=== PATIENT | male | born 1980 | race Two or more races ===

== ENCOUNTER 2016-09-19 08:04 | Emergency (ER) | payer OTHER ==
[2016-09-19 08:14] VITALS: BP 130/77; PULSE 64; TEMP 98.1; BMI 28.3
[2016-09-19] MEDS ORDERED: NAPROXEN 500 MG TABLET (FP) PO ONE (08:53)
[2016-09-19] MEDS ORDERED: NAPROXEN 500 MG TABLET (FP) ONE (08:56)
--- NOTE | 2016-09-19 08:59 | PDOC ---
History of Present Illness - General Chief Complaint: Pain Stated Complaint: INJURY Time Seen by Provider: 09/19/16 08:31 History Source: Patient Exam Limitations: No Limitations - History of Present Illness Initial Comments: 09/19/16 08:59 My chief complaint: Right thumb pain with swelling History of present illness: Patient is a 36-year-old male with a history of elevated triglycerides here today with his due to patient getting ready to go to work this morning and feeling pain to his distal aspect of his right thumb at the DIP joint. Patient prior to this did not feel any pain. Patient also noted that there was slight swelling at this joint of his right thumb at the DIP. 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 Patient denies doing anything strenuous over the weekend however and did not work. Patient has not taken anything for pain. Patient has full range of motion of the DIP joint of right thumb and MCP he joint of right thumb. Patient has not gotten any manicures and does not have any open areas on his right thumb. He denies texting or talking on the phone. 09/19/16 11:45 Occurred: reports: this morning Severity: reports: moderate Upper Extremity Pain Location: right: thumb (distal aspect) Method of Injury: reports: unknown Extremity Pain Location - Extremity Pain Location Extremity Pain Locations: right: thumb (distal aspect at the DIP) Past History - Past Medical History Allergies/Adverse Reactions: Allergies Allergy/AdvReac Type Severity Reaction Status Date / Time Penicillins Allergy Verified 09/19/16 08:15 Home Medications: Ambulatory Orders Cephalexin Monohydrate [Keflex -] 500 mg PO Q6H #39 capsule 09/19/16 Naproxen [Naprosyn -] 500 mg PO BID PRN #14 tablet 09/19/16 Other medical history: elevated triglycerides - Psycho/Social/Smoking Cessation Hx Suicidal Ideation: No Smoking History: Never smoked Hx Alcohol Use: Yes Drug/Substance Use Hx: No Review of Systems - Review of Systems Able to Perform ROS?: Yes Constitutional: No: Symptoms Reported HEENTM: No: Symptoms Reported Respiratory: No: Symptoms reported Cardiac (ROS): No: Symptoms Reported ABD/GI: No: Symptoms Reported : No: Symptoms Reported Musculoskeletal: Yes: Joint Pain (rt. thumb at dip JT ), Joint Swelling (RT. THUMB DIP JT) Integumentary: No: Symptoms Reported Neurological: No: Symptoms reported *Physical Exam - Vital Signs Last Vital Signs Temp Pulse Resp BP Pulse Ox 98.1 F 64 18 130/77 99 09/19/16 08:12 09/19/16 08:12 09/19/16 08:12 09/19/16 08:12 09/19/16 08:12 - Physical Exam General Appearance: Yes: Appropriately Dressed Extremity: positive: Normal Capillary Refill, Normal Range of Motion (rt. thumb at DIP, mcp jt), Tender (rt. medial dip jt), Swelling (minimal edema rt. thumb at pip jt), Other. negative: Erythema Integumentary: positive: Normal Color (rt. thumb), Swelling (minimal rt. dip jt) , Other (no tenderness, erythema or edema of rt. paronychium). negative: Erythema Neurologic: positive: Normal Response, Respond to painful stimul (rt. thumb ). negative: Numbness, Sensory Deficit ED Treatment Course - LABORATORY CBC & Chemistry Diagram: 09/19/16 09:17 Medical Decision Making - Medical Decision Making 09/19/16 09:00 Patient is a 36-year-old male with a history of elevated triglycerides here today with his due to patient getting ready to go to work this morning and feeling pain to his distal aspect of his right thumb at the DIP joint. Patient prior to this did not feel any pain. Patient also noted that there was slight swelling at this joint of his right thumb at the DIP. 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 Patient denies doing anything strenuous over the weekend however and did not work. Patient has not taken anything for pain. Patient has full range of motion of the DIP joint of right thumb and MCP he joint of right thumb. Patient has not gotten any manicures and does not have any open areas on his right thumb. RT.THUMB R/O OBED ABNORMALITY PLAN: NAPROSYN 500 MG PO NOW THAN BID FOR 7 DAYS PRN PAIN XRAY RT. THUMB no acute obed injuries per Dr. Wilkins FOLLOW UP WITH HAND ORTHO 09/19/16 10:05 Laboratory Tests 09/19/16 09/19/16 09:17 09:17 WBC 7.9 RBC 5.11 Hgb 14.7 Hct 43.3 MCV 84.8 MCH 28.8 MCHC 34.0 RDW 13.5 Plt Count 173 MPV 9.5 Neutrophils % 67.2 Lymphocytes % 21.2 Monocytes % 8.1 Eosinophils % 2.6 Basophils % 0.9 Uric Acid 6.4 09/19/16 10:05 09/19/16 11:10 Laboratory Tests 09/19/16 09:17 ESR 113 H 09/19/16 11:18 KEFLEX 500 MG PO NOW WILL HAVE PT. WAIT HERE TO ENSURE NO ALLERGIC REACTION TO KEFLEX THAN WILL DISCHARGE ON KEFLEX 500 MG PO Q 6 HRS FOR 10 DAYS WILL HAVE PT NFOLLOW UP WITH ORTHO HAND AND INSTRUCTIONS TO RETURN TO ER IF SYMPTOMS WORSEN INCREASED SWELLING, REDNESS OF JT RT THUMB OR FEVER OR DECREASED ABILITY TO FLEX OR EXTEND FINGER 09/19/16 11:19 09/19/16 11:24 *DC/Admit/Observation/Transfer Diagnosis at time of Disposition: Finger pain, right - Discharge Dispostion Disposition: HOME Condition at time of disposition: Stable - Prescriptions Prescriptions: Cephalexin Monohydrate [Keflex -] 500 mg PO Q6H #39 capsule Naproxen [Naprosyn -] 500 mg PO BID PRN #14 tablet PRN Reason: Pain - Referrals Referrals: Luis Garces MD [Staff Physician] - - Patient Instructions Additional Instructions: Return to emergency room immediately if any fever, increased swelling, redness or decreased ability to straighten or flex right thumb Follow up with orthopedist hand specialist tomorrow patient voiced understanding of discharge instructions and all questions were answered - Post Discharge Activity Work/School Note: Back to Work
[2016-09-19 09:28] LABS: BASOPHIL 0.9 % (0-2.0); EOSINOPHIL 2.6 % (0-4.5); MCH 28.8 pg (25.7-33.7); MEAN CELL VOLUME 84.8 fl (80-96); MEAN PLT VOLUME 9.5 fl (7.5-11.1); NEUTROPHILS 67.2 % (42.8-82.8); PLATELET COUNT 173 K/MM3 (134-434); RDW 13.5 % (11.9-15.9); WHITE BLOOD COUNT 7.9 K/mm3 (4.0-10.0)
[2016-09-19] MEDS ORDERED: CEPHALEXIN MONOHYDRATE 500 MG CAPSULE (UD) PO ONE (11:24)
[2016-09-19] MEDS ORDERED: CEPHALEXIN MONOHYDRATE 500 MG CAPSULE (UD) ONE (11:27)
== END 2016-09-19 12:13 | disposition home or self-care (01) ==
LOC: JERFT 08:04
DX: M79.644 Pain in right finger(s) (principal); M79.89 Other specified soft tissue disorders
CPT/HCPCS: 36415; 73140-TC-RT; 84550; 85025; 85651; 99282-25

== ENCOUNTER 2018-01-17 20:13 | Emergency (ER) | payer OTHER ==
--- NOTE | 2018-01-17 20:27 | PDOC ---
Rapid Medical Evaluation Time Seen by Provider: 01/17/18 20:23 Medical Evaluation: Allergies Allergy/AdvReac Type Severity Reaction Status Date / Time Penicillins Allergy Verified 09/19/16 08:15 01/17/18 20:24 I have performed a brief in-person evaluation of this patient. The patient presents with a chief complaint of: right groin pain x3 days s/p heavy lifting Pertinent physical exam findings: soft palpable mass present to right groin I have ordered the following: nothing The patient will proceed to the ED for further evaluation. Discharge Disposition - Diagnosis Groin pain - Referrals - Patient Instructions - Post Discharge Activity
[2018-01-17 20:32] VITALS: BP 130/72; PULSE 67; TEMP 97.6; BMI 28.3
--- NOTE | 2018-01-17 21:04 | PDOC ---
History of Present Illness - General Chief Complaint: Pain, Acute Stated Complaint: groin pain Time Seen by Provider: 01/17/18 20:23 History Source: Patient - History of Present Illness Initial Comments: 01/17/18 21:18 37 year old male c/o right groin pain after lifting heavy object at work yesterday, reports swelling worse with standing and lifting better with no activity. no swelling at this time. denies NVD, abdominal pain 01/17/18 21:24 Past History - Past Medical History Allergies/Adverse Reactions: Allergies Allergy/AdvReac Type Severity Reaction Status Date / Time Penicillins Allergy Verified 01/17/18 20:31 Home Medications: Ambulatory Orders NK [No Known Home Medication] 01/17/18 COPD: No - Suicide/Smoking/Psychosocial Hx Smoking History: Never smoked Information on smoking cessation initiated: No Hx Alcohol Use: No Drug/Substance Use Hx: No *Physical Exam - Vital Signs Last Vital Signs Temp Pulse Resp BP Pulse Ox 97.6 F 67 16 130/72 98 01/17/18 20:28 01/17/18 20:28 01/17/18 20:28 01/17/18 20:28 01/17/18 20:28 - Physical Exam General Appearance: Yes: Appropriately Dressed Respiratory/Chest: positive: Lungs Clear, Normal Breath Sounds Male Genitalia: positive: normal genitalia, inguinal hernia (right reducible inguinal hernia). negative: testicular tenderness, testicular mass Extremity: positive: Normal Capillary Refill, Normal Inspection, Normal Range of Motion Integumentary: positive: Normal Color, Dry, Warm Neurologic: positive: Fully Oriented, Alert, Normal Mood/Affect Medical Decision Making - Medical Decision Making 01/17/18 21:23 A : right inguinal hernia P: surgery outpatient follow up , *DC/Admit/Observation/Transfer Diagnosis at time of Disposition: Reducible right inguinal hernia Groin pain Qualifiers: Laterality: right Qualified Code(s): R10.31 - Right lower quadrant pain - Discharge Dispostion Disposition: HOME - Referrals Referrals: [facility] [Outside] - 24 hours - Patient Instructions Printed Discharge Instructions: Groin Hernia -- Adult Additional Instructions: this is due to heavy lifting. please refrain from lifting it will worsen the hernia. return to the ER if symptoms worsens. Additional Instructions: * Please call your personal physician to report your Emergency Department visit and to report your progress, if any. * If there is no improvement in symptoms in 2 days call your physician. * Return to the Emergency Department for any worsening symptoms. - Post Discharge Activity Forms/Work/School Notes: Back to Work
== END 2018-01-17 21:39 | disposition home or self-care (01) ==
LOC: JER 20:13
DX: R10.31 Right lower quadrant pain (principal); K40.90 Unilateral inguinal hernia, without obstruction or gangrene, not specified as recurrent
CPT/HCPCS: 99281-25

== ENCOUNTER 2018-01-20 13:45 | Emergency (ER) | payer OTHER ==
[2018-01-20 13:50] VITALS: BP 156/60; PULSE 69; TEMP 97; BMI 26.6
--- NOTE | 2018-01-20 14:02 | PDOC ---
History of Present Illness - General Chief Complaint: Pain Stated Complaint: LOWER ABD PAIN Time Seen by Provider: 01/20/18 13:53 History Source: Patient Exam Limitations: No Limitations - History of Present Illness Initial Comments: CHIEF COMPLAINT: 37 y/o male diagnosed with an inguinal hernia here on 01/19 returned for a surgery referral. HISTORY OF PRESENT ILLNESS: The patient states his workers comp won't accept initial referral we provided for him. He denies any new symptoms. Vital signs on arrival are within normal limits. REVIEW OF SYSTEMS: GENERAL/CONSTITUTIONAL: Subjective fever/chills. No weakness. No weight change. GASTROINTESTINAL: No nausea, vomiting, diarrhea, abd pain. GENITOURINARY: No dysuria, frequency, or change in urination. MUSCULOSKELETAL: No joint or muscle swelling or pain. No neck or back pain. SKIN: No rash or easy bruising. NEUROLOGIC: No headache, vertigo, loss of consciousness, or loss of sensation. PHYSICAL EXAM: GENERAL: The patient is awake, alert, and fully oriented, in no acute distress. ABDOMEN: Soft, non-distended, non-tender even to deep palpation, no hepatomegaly or splenomegaly, no masses. EXTREMITIES: Normal range of motion, no edema. NEUROLOGICAL: Normal speech, normal gait. CN II-XII grossly intact. SKIN: Warm, dry, normal turgor, no rashes or lesions noted. Past History - Past Medical History Allergies/Adverse Reactions: Allergies Allergy/AdvReac Type Severity Reaction Status Date / Time Penicillins Allergy Verified 01/20/18 13:50 Home Medications: Ambulatory Orders NK [No Known Home Medication] 01/17/18 COPD: No - Suicide/Smoking/Psychosocial Hx Smoking History: Never smoked Hx Alcohol Use: Yes Drug/Substance Use Hx: No *Physical Exam - Vital Signs Last Vital Signs Temp Pulse Resp BP Pulse Ox 97 F L 69 18 156/60 98 01/20/18 13:47 01/20/18 13:47 01/20/18 13:47 01/20/18 13:47 01/20/18 13:47 Medical Decision Making - Medical Decision Making A/P: 37 y/o male here for referral for surgeon for hernia repair. His first referral was denied by workers comp. I informed him that workers comp will most likely need to refer him to a surgeon that they accept. Provided him with a new referral anyway. *DC/Admit/Observation/Transfer Diagnosis at time of Disposition: Physical exam - Discharge Dispostion Disposition: HOME Condition at time of disposition: Good - Referrals Referrals: Manuel Jacob MD [Staff Physician] - - Patient Instructions - Post Discharge Activity
== END 2018-01-20 14:47 | disposition home or self-care (01) ==
LOC: JERFT 13:45
DX: Z00.00 Encounter for general adult medical examination without abnormal findings (principal)
CPT/HCPCS: 99281-25